=== PATIENT | female | born 1975 | race African-American/Black ===

== ENCOUNTER 2024-08-15 09:54 | Emergency (ER) | payer MEDICAID ==
[~2024-08-15] VITALS: Ht 167.6 cm; Wt 70.0 kg
[2024-08-15 09:56] VITALS: TEMP 98.2; O2SAT 100
[2024-08-15 12:15] VITALS: BP 162/100; PULSE 105; RESP 20
[2024-08-15] MEDS: KETOROLAC 30MG/ML VIAL IM ONE (12:15)
[2024-08-15] MEDS: TRAMADOL 50MG TABLET PO ONE (12:15)
[2024-08-15] MEDS ORDERED: TRAM100C3 MT (12:58)
[2024-08-15] MEDS ORDERED: CELE-116 MT (13:12)
[2024-08-15] MEDS ORDERED: TRAM50TA3 MT (13:12)
== END 2024-08-15 13:36 | disposition home or self-care (01) ==
LOC: ER 10:03
DX: G89.29 Other chronic pain (principal); M54.50 Low back pain, unspecified; I10 Essential (primary) hypertension; Z88.6 Allergy status to analgesic agent
CPT/HCPCS: 99283; 96372; J1885